=== PATIENT | male | born 1960 | race Two or more races ===

== ENCOUNTER 2025-07-07 09:11 | Outpatient (CLI) | payer OTHER ==
[2025-07-07 09:51] LABS: Hematocrit 46.6 % (41.0-53.0); Hemoglobin 16.1 g/dL (13.5-17.5); Mean Corpuscular Hemoglobin 31.4 pg (28.0-32.0); Mean Corpuscular Volume 91.1 fL (80.0-100.0); Nucleated Red Blood Cells % 0.0 %
[2025-07-07 10:10] LABS: Alanine Aminotransferase 28 U/L (7-40); Alkaline Phosphatase 82 U/L (46-116); Anion Gap 8 (5-15); BUN/Creatinine Ratio 11.5 (10.0-20.0); Blood Urea Nitrogen 11 mg/dL (9-23); Calcium 10.1 mg/dL (8.7-10.4); Carbon Dioxide 26 mmol/L (20-31); Chloride 105 mmol/L (98-107); Potassium 4.4 mmol/L (3.5-5.1); Sodium 139 mmol/L (136-145); Total Protein 7.6 g/dL (5.7-8.2)
[2025-07-07 10:11] LABS: Bilirubin, Total 0.7 mg/dL (0.2-1.0)
[2025-07-07 10:28] LABS: Urine Protein, UAD Negative (Negative)
[2025-07-07 11:02] LABS: Albumin 5.0 g/dL (3.2-4.8); Cholesterol 246 mg/dL (< 200); Glucose 106 mg/dL (74-106); Triglycerides 187 mg/dL (< 150)
[2025-07-07 11:03] LABS: HDL Cholesterol 37 mg/dL (40-59)
== END 2025-07-07 17:00 | disposition home or self-care (01) ==
LOC: LAB 09:11
PROVIDERS: ATTEND Nurse Practitioner Family
DX: I10 Essential (primary) hypertension (principal); E66.9 Obesity, unspecified; R35.1 Nocturia; Z00.01 Encounter for general adult medical examination with abnormal findings
CPT/HCPCS: 36415; 80053; 80061; 81001; 82306; 84153; 84443; 85025